=== PATIENT | female | born 1955 | race Caucasian/White ===

== ENCOUNTER 2024-01-22 13:14 | Outpatient (CLI) | payer MEDICARE, SELFPAY ==
--- NOTE | ~2024-01-22 | DEXA_ITS ---
Bone Density Report Name: GIL MONTANO Age: 69 Sex: Female Ethnicity: White Date of : 1955 Indication: hyperparathyroidism; height loss; secondary osteoporosis; postmenopausal Referring Provider: KAIT NEGRO Study: Bone densitometry was performed. Exam Date: January 22, 2024 Accession number: [id number] Bone Density: Region BMD T-score Z-score Classification AP Spine(L1, L2, L3) 1.001 -0.2 1.7 Normal Femoral Neck (Left) 0.653 -1.8 -0.1 Osteopenia Total Hip (Left) 0.818 -1.0 0.3 Normal Femoral Neck (Right) 0.683 -1.5 0.1 Osteopenia Total Hip (Right) 0.846 -0.8 0.5 Normal Total Hip Mean 0.832 -0.9 0.4 Normal World Health Organization criteria for BMD impression classify patients as: Normal (T-score at or above -1.0), Osteopenia (T-score between -1.0 and -2.5), or Osteoporosis (T-score at or below -2.5). 10-year Fracture Risk: FRAX not reported because: Treated for osteoporosis Clinical Information Provided by Patient: Has secondary osteoporosis Is being treated for osteoporosis Has used the following medications: Fosamax (i.e. alendronate), Vitamin D, Calcium Has the following medical conditions: Hyperparathyroidism Patient maximum height was 61.8 Menopause Age: 50 Drinks caffeinated beverages Onset of menses at age 14 Number of children 1 Missed period for more than 6 months in a row Impression: The patient has low bone mass, based on the Left Femoral Neck T-score. Discussion: It is important to ask patients whether they are taking their medications and to encourage continued and appropriate compliance with their osteoporosis therapies to reduce fracture risk. It is also important to review their risk factors and encourage appropriate calcium and vitamin D intakes, exercise, fall prevention and other lifestyle measures. Follow-Up: Consider a repeat BMD and Vertebral Fracture Assessment (VFA) exam in 2 years or sooner if medically necessary, to reassess this patient's status. Reported by: AMERICA on 01/22/2024 2:11:00 PM. Reviewed, dictated and finalized at location [facility]
== END 2024-01-22 13:15 | disposition home or self-care (01) ==
PROVIDERS: PCP Physician Assistant Medical; Visit Provider Physician Assistant Medical
DX: E28.39 Other primary ovarian failure (principal); M85.852 Other specified disorders of bone density and structure, left thigh; M85.851 Other specified disorders of bone density and structure, right thigh
CPT/HCPCS: 77080

== ENCOUNTER 2024-03-27 15:04 | Emergency (ER) | payer MEDICARE, SELFPAY ==
--- NOTE | ~2024-03-27 | CT_ITS ---
EXAMINATION: CT brain wo con, CT facial & cervical spine wo DATE: 03/27/2024 15:31 INDICATION: Head injury TECHNIQUE: 1. Computed tomography (CT) of the head was performed without intravenous contrast. Sagittal and clint nal reconstructions were performed. The mA was adjusted according to patient size. Iterative reconstr uction technique was employed. The dose-length product was 681.00 mGy-cm. 2. CT of the maxillofacial bones and cervical spine was performed without intravenous contrast. Sagit con and coronal reconstructions were performed. Automated exposure control and iterative reconstructi on technique were employed. The dose-length product was 298.63 mGy-cm. COMPARISON: Brain MR dated FINDINGS: Head CT: No calvarial fracture. No acute intracranial hemorrhage, acute infarction or abnormal extra axial flu id collection. Symmetric prominence of the sulci and and subarachnoid spaces overlying the convexitie s consistent with mild age-appropriate diffuse cerebral volume loss. Ventricles are normal and symme tric. No mass/mass effect. The mastoid air cells and middle ear cavities are clear. Maxillofacial CT: Subtle subcutaneous contusion in the right malar region. No maxillofacial fractures. Specifically the mandible, nasal bones, zygomatic arches and turcios of the orbits and paranasal sinuses are all intact . Nasal septum is midline with no evident fracture. Mild mucosal thickening in the right sphenoid sin us which is partially filled with dependent mucus suggesting acute sinusitis.. Orbits are normal. Cervical spine CT: There is straightening of the normal cervical lordosis. Vertebral body heights are normal. No fractur e. Mild osteoarthritis at the atlantoaxial articulation. Disc heights are normal with small anterior endplate osteophytes and moderate left-sided and mild right-sided uncovertebral osteoarthritis at C5- C6. There is fusion across the bilateral facet and uncovertebral joints at C3-C4. Mild uncovertebral osteoarthritis at a few of the remaining cervical levels. Severe bilateral facet osteoarthritis at C7 -T1. Mild to moderate facet osteoarthritis throughout the more cephalad cervical spine. No central ca nal stenosis. Minimal to mild neural foraminal stenosis at a few levels in the cervical spine. IMPRESSION: 1. Normal aging brain. No acute intracranial process. 2. No calvarial or maxillofacial fractures. 3. Normal cervical lordosis with mild spondylosis. No fracture or other acute osseous abnormality. Li ne 4. Mild mucosal thickening and dependently layering mucus in the right sphenoid sinus. Correlate for acute sinusitis. Reviewed, dictated and finalized at location [facility]. IMPRESSION: 1. Normal aging brain. No acute intracranial process. 2. No calvarial or maxillofacial fractures. 3. Normal cervical lordosis with mild spondylosis. No fracture or other acute o sseous abnormality. Line 4. Mild mucosal thickening and dependently layering mucus in the right sphenoid sinus. Correlate for acute sinusitis.
[2024-03-27 15:11] VITALS: BP 148/90; PULSE 77; RESP 16; TEMP 36.6; O2SAT 99
--- NOTE | 2024-03-27 15:12 | ED.HEATRA ---
HPI - Head Injury General Chief complaint: Head Injury Stated complaint: fell, head lac Time Seen by Provider: 03/27/24 15:11 History of Present Illness HPI Narrative: 69-year-old female history of osteoporosis, hypertension, hyperthyroidism presents emergency room for evaluation of facial laceration. Patient states she slipped and fell, experiencing a laceration to her right brow. Patient is on aspirin daily. Denies any LOC or altered mental status. Denies dizziness lightheadedness, nausea vomiting. Associated with a mild headache. No other injuries. Related Data Home Medications Medication Instructions Recorded Confirmed ascorbate calcium (vitamin C) 500 500 mg PO BID 08/26/19 03/06/24 mg tablet aspirin 81 mg tablet,delayed 81 mg PO DAILY 08/26/19 03/06/24 release (Adult Aspirin Regimen) glucosamine 750 [id number] tablet PO 08/26/19 03/06/24 no1 625 mg-C 30 mg-shiv 1 mg tablet omeprazole 20 mg capsule,delayed 20 mg PO DAILY 08/26/19 03/06/24 release multivitamin 1 tablet PO DAILY 12/29/19 03/06/24 calcium carbonate 600 mg-vitamin 1 tablet PO DAILY 01/04/21 03/06/24 D3 20 mcg (800 unit) tablet fluticasone propionate 50 1 spray intranasal DAILY PRN 01/04/21 03/06/24 mcg/actuation nasal spray,suspension polyethylene glycol 3350 17 gram 17 g PO DAILY PRN 01/04/21 03/06/24 oral powder packet (Miralax) naproxen sodium 220 mg tablet 220 mg PO DAILY PRN 07/19/21 03/06/24 (Aleve) cholecalciferol (vitamin D3) 50 50 mcg PO DAILY 07/31/22 03/06/24 mcg (2,000 unit) capsule cetirizine 10 mg tablet 10 mg PO DAILY PRN 01/15/24 03/06/24 Allergies Allergy/AdvReac Type Severity Reaction Status Date / Time Sulfa (Sulfonamide Allergy Intermediate Hives Verified 03/06/24 08:52 Antibiotics) Review of Systems Review of Systems: ROS unremarkable except for noted in HPI PMFSH Past Medical History Medical History GERD (gastroesophageal reflux disease) Hypertension Hyperthyroidism Osteoporosis Vitamin D deficiency Surgical History Surgical History History of section 1988 History of dilatation and curettage 1987 History of endometrial ablation 1981-outside uterus for endometriosis, 1994 Novasure uterine ablation History of laparoscopy 1979, 1980, 1981 History of open reduction and internal fixation (ORIF) procedure right forearm 1966 History of tonsillectomy and adenoidectomy 1963 History of wisdom tooth extraction 1975 Family History Family History Mother Family history of thyroid disease Family history of osteoporosis Family history of elevated blood lipids Cerebrovascular accident Family history of kidney disease Family history of Alzheimer's disease Family history of diabetes mellitus in first degree relative Family history of heart disease in male family member before age 55 Father Hypertension Family history of elevated blood lipids Family history of arthritis Social History Social History Smoking status: Never smoker Second hand tobacco smoke exposure: No Alcohol intake: never Substance use: never Substance use type: does not use Lack of Transportation: No Lack of Food: Never True Current Housing: I Have Housing Concerned About Future Housing: No Difficulty Paying Gas/Electric Bills: No Difficulty Paying for Meds: No Currently Unemployed: No Difficulty w/ Childcare or Family Care: No Living arrangements: with family Additional living arrangements comments: lives with her Occupation/Education: retired Additional occupation/education comments: retired nurse Gender identity (if verbalized by the patient): Female Sexual Orientation (if Verbalized by the Patient): Straight or Het
[2024-03-27] MEDS: TETANUS,DIPHTHERIA,AC PERTUSSIS ADULT (0.5 ML) BOOSTRIX IM (16:31)
== END 2024-03-27 16:52 | disposition home or self-care (01) ==
PROVIDERS: Emergency Provider Nurse Practitioner Family; PCP Physician Assistant Medical
DX: S01.111A Laceration without foreign body of right eyelid and periocular area, initial encounter (principal); Z23 Encounter for immunization; I10 Essential (primary) hypertension; E03.9 Hypothyroidism, unspecified; E55.9 Vitamin D deficiency, unspecified; M81.0 Age-related osteoporosis without current pathological fracture; K21.9 Gastro-esophageal reflux disease without esophagitis; Z79.82 Long term (current) use of aspirin; Z79.899 Other long term (current) drug therapy; W01.0XXA Fall on same level from slipping, tripping and stumbling without subsequent striking against object, initial encounter
CPT/HCPCS: 12011; 70450; 70486; 72125; 90471; 90715; 99284